=== PATIENT | female | born 1985 | race Caucasian/White ===

== ENCOUNTER 2019-10-25 09:54 | Emergency (ER) | payer BC ==
--- NOTE | 2019-10-25 10:37 | ED ---
Headache - HPI Summary HPI Summary: The patient is a 33 y/o female presenting to [facility] with a chief complaint of headache and nausea for the last week. 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 She was exposed for five hours but left early because she developed a headache and nausea, and she had an episode of vomiting. She also has noticed that her memory has been off as she has difficulty remembering things or coordinating. Symptoms are currently rated 2/10 in severity. She notes that she has been under more stress than usual. A teacher in the same school was diagnosed with carbon monoxide poisoning. No PMHx. Nonsmoker, occasional, EtOH, no substance use. Medications reviewed. Allergies noted. - History Of Current Complaint Chief Complaint: EDHeadache Stated Complaint: EXPOSURE- CARBON MONOXIDE PER PT Time Seen by Provider: 10/25/19 10:27 Hx Obtained From: Patient Hx Last Menstrual Period: currently Onset/Duration: Started days ago - one week, Still Present Initially Headache Was: Mild Currently Pain Is: Current Pain Scale(0-10)= - 2 Timing: Intermittent, Lasting:, Hours Character: Typical Headache Aggravating Factor: Other - possible CO exposure Allevating Factors: Nothing Associated Signs And Symptoms: Nausea, Vomiting, Other (Noted In Comments) - difficulty with memory and coordination - Allergies/Home Medications Allergies/Adverse Reactions: Allergies Allergy/AdvReac Type Severity Reaction Status Date / Time No Known Allergies Allergy Verified 10/25/19 10:00 PMH/Surg Hx/FS Hx/Imm Hx Endocrine/Hematology History: Denies: Hx Diabetes Respiratory History: Denies: Hx Asthma Sensory History: Reports: Hx Contacts or Glasses Opthamlomology History: Reports: Hx Contacts or Glasses - Surgical History Surgical History: None Surgery Procedure, Year, and Place: none Infectious Disease History: No Infectious Disease History: Denies: Traveled Outside the [place] in Last 30 Days - Family History Known Family History: Negative: Hypertension, Diabetes - Social History Alcohol Use: Occasionally Hx Substance Use: No Substance Use Type: Reports: None Hx Tobacco Use: No Smoking Status (MU): Never Smoked Tobacco Review of Systems Positive: Vomiting, Nausea Neurological: Other - difficulty with memory and coordination Positive: Headache All Other Systems Reviewed And Are Negative: Yes Physical Exam - Summary Physical Exam Summary: Constitutional: Well-developed, Well-nourished, Alert. (-) Distressed Skin: Warm, Dry HENT: Normocephalic; Atraumatic Eyes: Conjunctiva normal Neck: Musculoskeletal ROM normal neck. (-) JVD, (-) Stridor, (-) Nuchal rigidity Cardio: Rhythm regular, rate normal, Heart sounds normal; Intact distal pulses; Radial pulses are 2+ and symmetric. (-) Murmur Pulmonary/Chest wall: Effort normal. (-) Respiratory distress, (-) Wheezes, (-) Rales Abd: Soft, (-) tenderness, (-) Distension, (-) Guarding, (-) Rebound Musculoskeletal: (-) Edema Lymph: (-) Cervical adenopathy Neuro: Alert, Oriented x3 Psych: Mood and affect Normal Triage Information Reviewed: Yes Vital Signs On Initial Exam: Initial Vitals Temp Pulse Resp BP Pulse Ox 98.9 F 87 18 174/111 99 10/25/19 09:57 10/25/19 09:57 10/25/19 09:57 10/25/19 09:57 10/25/19 09:57 Vital Signs Reviewed: Yes Procedures - Sedation Patient Received Moderate/Deep Sedation with Procedure: No Diagnostics - Vital Signs Vital Signs Temp Pulse Resp BP Pulse Ox 10/25/19 09:57 98.9 F 87 18 174/111 99 - Laboratory Result Diagrams: 10/25/19 10:21 10/25/19 10:21 Lab Statement: Any lab studies that have been ordered have been reviewed, and results considered in the medical decision making process. Re-Evaluation - Re-Evaluation First Eval Re-Evaluation Time: 11:00 Comment: Discussed negative CO, plan for d/c Headache Course/Dx - Course Course Of Treatment: 33 y/o F w mild headache, fatigue. - no infectious symptoms, no fevers. CO2 normal. AAOx3 here. No focal neuro deficits. Does NOT have a history of headache of exactly the same type, pain was not sudden onset/ thunderbolt, not worst of life, no meningismus, no neuro deficit on exam, and no personal/family history of aneurysm, so unlikely ICH. No known/suspected cancer and neuro exam WNL, so unlikely mass lesion. No fever, URI sx, meningismus, or known immunocompromised state to suggest meningitis. Imaging deferred. - Diagnoses Provider Diagnoses: Headache Discharge ED - Sign-Out/Discharge Documenting (check all that apply): Patient Departure - Patient will be discharged home. - Discharge Plan Condition: Stable Disposition: HOME Patient Education Materials: Acute Headache (ED) Referrals: Aubrie Blas MD [Primary Care Provider] - 3 Days Additional Instructions: You were seen in the emergency department for a headache and concern for carbon monoxide poisoning, your carbon monoxide level was normal. If any studies were not completed at the time of discharge you will be called with the relevant results. Please follow up with your primary care doctor in the next 2-3 days and return to the emergency department for worsening headaches, confusion or concerning symptoms. It was a pleasure taking care of you today. - Billing Disposition and Condition Condition: STABLE Disposition: Home - Attestation Statements Document Initiated by Nohelia: Yes Documenting Scribe: Ana Ventura Provider For Whom Nohelia is Documenting (Include Credential): Dr. Ama Hodges MD Scribe Attestation: I, Ana Ventura scribed for Dr. Ama Hodges MD on 10/25/19 at 1116. Scribe Documentation Reviewed: Yes Provider Attestation: The documentation as recorded by the Ana ortega accurately reflects the service I personally performed and the decisions made by me, Dr. Ama Hodges MD Status of Scribthu Document: Viewed
[2019-10-25 10:39] LABS: ABS Basophils 0.1 10^3/ul (0-0.2); ABS Lymphocytes 1.9 10^3/ul (1.0-4.8); ABS Monocytes 0.3 10^3/ul (0-0.8); ABS Neutrophils 3.6 10^3/ul (1.5-7.7); Eosinophil % 0.8 %; Hematocrit 40 % (35-47); Mean Corpuscular HGB Conc 35 g/dL (31-36); Mean Corpuscular Hemoglobin 36 pg (27-31); Mean Corpuscular Volume 101 fL (80-97); Mean Platelet Volume 7.9 fL (7.4-10.4); Nucleated Red Blood Cells % 0.1; Platelet Count 341 10^3/uL (150-450); Red Blood Count 3.91 10^6 /uL (3.70-4.87); Red Cell Distribution Width 12 % (10-15); White Blood Count 5.8 10^3/uL (3.5-10.8)
[2019-10-25 10:52] LABS: ALT 14 U/L (7-52); AST 19 U/L (13-39); Albumin 4.6 g/dL (3.2-5.2); Albumin/Globulin Ratio 1.4 (1-3); Alkaline Phosphatase 47 U/L (34-104); Anion Gap 8 mmol/L (2-11); BUN/Creatinine Ratio 15.7 (8-20); Blood Urea Nitrogen 11 mg/dL (6-24); CO2 Carbon Dioxide 24 mmol/L (22-32); Calcium 9.9 mg/dL (8.6-10.3); Chloride 105 mmol/L (101-111); EGFR African American 115.9 (>60); EGFR Non-African American 95.8 (>60); Globulin 3.3 g/dL (2-4); Glucose 104 mg/dL (70-100); Sodium 137 mmol/L (135-145); Total Protein 7.9 g/dL (6.4-8.9)
[2019-10-25 10:58] LABS: HCG Pregnancy < 0.60 mIU/mL
[2019-10-25 11:32] VITALS: BP 123/78
== END 2019-10-25 11:31 | disposition home or self-care (01) ==
LOC: ED 09:54
DX: R51 Headache (principal)
CPT/HCPCS: 36415; 80053; 82375; 84702; 85025; 99282